=== PATIENT | male | born 1990 | race Caucasian/White ===

== ENCOUNTER 2025-05-16 18:32 | Emergency (ER) | payer BC, SELFPAY ==
[2025-05-16] VITALS (21 sets, daily range): BP systolic 116–148; BP diastolic 73–83; PULSE 51–82; TEMP 36.8–36.9; O2SAT 98–100; BMI 26.9
--- NOTE | 2025-05-16 19:00 | ECG_ITS ---
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 Measurements Intervals [place] Rate: 59 P: 63 WI: 152 QRS: 67 QRSD: 102 T: 69 QT: 394 QTc: 392 Interpretive Statements 1100 Sinus rhythm 9110 normal ECG No previous ECG available for comparison Electronically Signed On 05-17-2025 7:57:32 EST by EMILY JAY M.D.
--- NOTE | 2025-05-16 19:23 | XR_ITS ---
[place] [id number] Patient Name: ROMAINE ALFARO MRN: [id number] date: 1990 Sex: M Assigned Patient Location: ER Current Patient Location: ED.MAIN Accession/Order Number: [id number] Exam Date: 05/16/2025 19:26 Report Date: 05/16/2025 20:06 At the request of: HERMAN GALLAGHER MD Procedure: XR chest 1V XR chest 1V 05/16/2025 7:33 PM SIGNS AND SYMPTOMS: ^chest pain PROTOCOL: Frontal radiograph of the chest COMPARISON: None FINDINGS: The trachea is midline. The heart and mediastinal structures are within normal limits. The lung parenchyma is clear. The bony thorax is intact. There is a dextro convex curvature of the thoracic spine. XR/XR chest 1V IMPRESSION: No acute cardiopulmonary pathology. Impression dictated by: Errol Schneider M.D. 05/16/2025 8:06 PM Dictation Location: [employer] Electronically authenticated by: [id number] Y Date: 05/16/2025 20:06
--- NOTE | 2025-05-16 19:23 | ED.CHESTPAI1 ---
HPI - Chest Pain General Chief Complaint: Chest Pain Stated Complaint: CHEST PAIN Time Seen by Provider: 05/16/25 19:18 Source: patient Mode of arrival: walk-in History of Present Illness HPI narrative: chest pain. was working out and felt pain in his chest. Was working on his shoulders. completed his workout and went home. Natalie while at work again experienced pain of his left chest. Informed his boss who advisd him to come to the ED for evaluation. No associated dyspnea or nausea or light headiness Related Data Home Medications ?Medication ?Instructions ?Recorded ?Confirmed No Known Home Medications 05/16/25 05/16/25 Allergies Allergy/AdvReac Type Severity Reaction Status Date / Time No Known Drug Allergies Allergy Verified 05/16/25 18:37 Review of Systems ROS Status of ROS 10 or more systems reviewed and unremarkable except as noted in history and below PFSH PFSH Social History Little interest or pleasure in doing things: not at all Feeling down, depressed, or hopeless: not at all Exam Constitutional Vital Signs, click to edit/add: Last Vital Signs Temp 98.4 F 05/16/25 18:38 Pulse 56 L 05/16/25 20:50 Resp 17 05/16/25 20:50 BP 142/83 H 05/16/25 20:31 Pulse Ox 98 05/16/25 20:20 O2 Del Method Room Air 05/16/25 18:38 Common normals: no apparent distress, average body habitus, oriented x3, no limitations, healthy appearing, alert and well nourished [facility] Common normals: normocephalic and head/scalp atraumatic Eye Common normals: PERRL, EOMs intact bilaterally and conjunctivae normal Chest Other: mild left chest wall tenderness. Respiratory Common normals: normal respiratory effort, no retractions, no use of accessory muscles and clear to auscultation bilaterally Cardio Common normals: regular rate, regular rhythm, S1 normal heart sound and S2 normal heart sound GI Common normals: Normal to inspection, nondistended, normoactive bowel sounds present, soft to palpation and non-tender Extremity Common normals: normal to inspection and full ROM Neuro Common normals: oriented x3, CN's II-XII intact bilaterally, moves all extremities and no focal motor deficits Psych Appearance: grossly normal Course Vital Signs Vital signs: Vital Signs Temperature 98.4 F 05/16/25 18:38 Pulse Rate 56 L 05/16/25 18:38 Respiratory Rate 16 05/16/25 18:38 Blood Pressure 148/81 H 05/16/25 18:38 Pulse Oximetry 98 05/16/25 18:38 Oxygen Delivery Method Room Air 05/16/25 18:38 Temperature 98.4 F 05/16/25 18:38 Pulse Rate 56 L 05/16/25 20:50 Respiratory Rate 17 05/16/25 20:50 Blood Pressure 142/83 H 05/16/25 20:31 Pulse Oximetry 98 05/16/25 20:20 Oxygen Delivery Method Room Air 05/16/25 18:38 MDM - Chest Pain MDM Narrative Medical decision making narrative: patient presents with left sided chest wall pain. First experienced pain working out in the gym. Pain did resolve but returned tonight at work. Has chest wall tenderness. Dominique EKG, CXRAY. normal troponin and d-dimer. Patient reasurred and dishcarged home Lab Data Labs: Lab Results 05/16/25 05/16/25 Range/Units 18:45 19:49 WBC 6.0 (4.0-11.0) 10^3/uL RBC 5.09 (4.70-6.10) 10^6/uL Hgb 15.5 (14.0-18.0) g/dL Hct 44.4 (42.0-54.0) % MCV 87.2 (80.0-94.0) fL MCH 30.5 (25.9-34.0) pg MCHC 34.9 (29.9-35.2) g/dL RDW 11.9 (11.0-15.0) % Plt Count 229 (150-450) 10^3/uL MPV 10.9 (9.5-13.5) fL Neut % (Auto) 62.3 (43.0-75.0) % Lymph % (Auto) 27.5 (20.5-60.0) % [place] % (Auto) 7.8 (1.7-12.0) % Eos % (Auto) 1.5 (0.9-7.0) % Baso % (Auto) 0.7 (0.2-2.0) % Neut # (Auto) 3.8 (1.4-6.5) 10^3/uL Lymph # (Auto) 1.7 (1.2-3.8) 10^3/uL [place] # (Auto) 0.5 (0.3-0.8) 10^3/uL Eos # (Auto) 0.1 (0.0-0.7) 10^3/uL Baso # (Auto) 0.0 (0.0-0.1) 10^3/uL Abs Immat Gran (auto) 0.01 (0.00-0.03) 10^3/uL Imm/Tot Granulo (auto) 0.2 (0.0-0.5) % D-Dimer <0.19 (<=0.59) mg/L FEU Sodium 137 (136-145) mmol/L Potassium 4.1 (3.5-5.1) mmol/L Chloride 105 (98-107) mmol/L Carbon Dioxide 29.2 (21.0-32.0) mmol/L Anion Gap 6.9 BUN 17.0 (7.0-18.0) mg/dL Creatinine 1.28 (0.70-1.30) mg/dL Est GFR ( Amer) >60 (>=60 mL/min/1.73m^2) Est GFR (Non-Af Amer) >60 (>=60 mL/min/1.73m^2) BUN/Creatinine Ratio 13.3 Glucose 91 (74-106) mg/dL Calcium 9.3 (8.5-10.1) mg/dL Troponin I High Sens 6.2 (4.0-76.1) pg/mL Discharge Plan Discharge Chief Complaint: Chest Pain Clinical Impression: Chest wall muscle strain Patient Disposition: Home, Self-Care Prescriptions / Home Meds: No Action No Known Home Medications Print Language: Gabonese Instructions: Muscle Strain (DC) Additional Instructions: use ibuprofen or similar for pain. Follow up with your doctor next week for recheck Referrals: Physician,Non-Staff, MD [Primary Care Provider] - 1 week
[2025-05-16 19:27] LABS: Hematocrit 44.4 % (42.0-54.0); Hemoglobin 15.5 g/dL (14.0-18.0); Immature Granulocytes Abs Auto 0.01 10^3/uL (0.00-0.03); Immature Granulocytes Pct Auto 0.2 % (0.0-0.5); Lymphocytes Absolute Auto 1.7 10^3/uL (1.2-3.8); Mean Corpuscular HGB Conc 34.9 g/dL (29.9-35.2); Mean Corpuscular Hemoglobin 30.5 pg (25.9-34.0); Mean Corpuscular Volume 87.2 fL (80.0-94.0); Platelet Count 229 10^3/uL (150-450); Red Blood Count 5.09 10^6/uL (4.70-6.10); White Blood Count 6.0 10^3/uL (4.0-11.0)
[2025-05-16 19:40] LABS: Anion Gap 6.9; Blood Urea Nitrogen 17.0 mg/dL (7.0-18.0); Calcium 9.3 mg/dL (8.5-10.1); Carbon Dioxide 29.2 mmol/L (21.0-32.0); Chloride 105 mmol/L (98-107); Estimated GFR (African America >60 (>=60 mL/min/1.73m^2); Estimated GFR (Non-African Ame >60 (>=60 mL/min/1.73m^2); Glucose 91 mg/dL (74-106); Potassium 4.1 mmol/L (3.5-5.1); Sodium 137 mmol/L (136-145)
--- OUTSIDE RECORDS SUMMARY | 2025-05-16 20:00 | XMS_ITS | Clinical Summary ---
[facility] Organization [facility] Address [address] [place] [address], [address] [place] [address] Care Team Providers Care Cooky Packer Name Role Phone Unavailable Primary Care Provider Unavailabl e Social History Tobacco UseTypesPacks/DayYears UsedDateSmoking Tobacco: Never AssessedSex and Gender InformationValueDate RecordedSex Assigned at BirthNot on fileLegal Sex Male01/25/2020 1:05 PM EDTGender IdentityNot on fileSexual OrientationNot on file Last Filed Vital Signs Vital SignReadingTime TakenCommentsBlood Pigjlhmj051/8301/25/2020 3:30 PM EDT Lnxur692101/25/2020 4:20 PM EQCMbeueloffdd31.9 ??C (98.5 ??F)01/25/2020 1:22 PM EDTRespiratory Rhcr557101/25/2020 4:20 PM EDTOxygen Jvkruyozhd25%01/25/2020 4:20 PM EDTInhaled Oxygen Concentration--Weight--Height--Body Mass Index-- Plan of Treatment Not on file Insurance * Guarantor: Ray Holley TypeRelation to PatientDate of BirthPhone Billing AddressPersonal/FamilySelf [address] [place] [address]
--- OUTSIDE RECORDS SUMMARY | 2025-05-16 20:00 | XMS_ITS | Clinical Summary ---
Author Organization [facility] tem Address [id number] [address] [place] [address] Care Team Providers Care Telecasting Technician Name Role Phone No Pcp, No Pcp Primary Care Provider Unavailabl e Allergies No known active allergies Medications No known medications Social History Tobacco UseTypesPacks/DayYears UsedDateSmoking Tobacco: Every DayCigarettes Smokeless Tobacco: NeverAlcohol UseStandard Drinks/WeekCommentsNever0 (1 standard drink = 0.6 oz pure alcohol)Sex and Gender InformationValueDate RecordedSex Assigned at BirthNot on fileLegal GmzNwpr94/09/2021 8:22 PM EDT Gender IdentityNot on fileSexual OrientationNot on file Last Filed Vital Signs Vital SignReadingTime TakenCommentsBlood Wocbfbhq136/8310 8:28 PM EDT Ifpks033503/06/2021 8:28 PM SXEPnqjznjcacm36 ??C (98.6 ??F)03/06/2021 8:28 PM EDT Respiratory Fxho6708 8:28 PM EDTOxygen Xckobvpxmz14%03/06/2021 9:30 PM EDTInhaled Oxygen Concentration--Fzvlub55.4 kg (217 lb)03/06/2021 8:28 PM EDT Dmbpmr829 cm (6' 2 )03/06/2021 8:28 PM EDTBody Mass Index27.8603/06/2021 8:28 PM EDT Plan of Treatment Not on file Medical Devices Not on file Insurance Care Teams Team MemberRelationshipSpecialtyStart DateEnd Date No Pcp, [place] [address] PCP - GeneralFamily Wjmczgib89/9/21
== END 2025-05-16 21:40 | disposition home or self-care (01) ==
PROVIDERS: Emergency Provider Internal Medicine
DX: S29.011A Strain of muscle and tendon of front wall of thorax, initial encounter (principal); X58.XXXA Exposure to other specified factors, initial encounter
CPT/HCPCS: 36415; 71045; 80048; 84484; 85025; 85378; 93005; 99284